=== PATIENT | male | born 1955 | race Caucasian/White ===

== ENCOUNTER 2020-11-11 15:50 | Outpatient (CLI) | payer OTHER, MEDICARE, SELFPAY ==
--- NOTE | ~2020-11-11 | XR_ITS ---
EXAMINATION: XR chest 2V DATE: 11/11/2020 16:13 INDICATION: Wheezing. Cough. Lung cancer. TECHNIQUE: Frontal and lateral views of the chest were obtained. COMPARISON: None. FINDINGS: There are airspace opacities in right lower lung zone and left mid and lower lung zones. No pleural effusion or pneumothorax. Cardiomegaly is noted. There is a right internal jugular port with tip at superior cavoatrial junction. IMPRESSION: 1. Airspace opacities in right lower lung zone and left mid and lower lung zones. The reported primar y malignancy may be in the left perihilar region. These findings may be some combination of treatment changes and atelectasis versus pneumonia. Correlation with outside imaging is recommended. 2. Cardiomegaly. Reviewed, dictated and finalized at location A. IMPRESSION: 1. Airspace opacities in right lower lung zone and left mid and lower lung zone s. The reported primary malignancy may be in the left perihilar region. These f indings may be some combination of treatment changes and atelectasis versus pne umonia. Correlation with outside imaging is recommended. 2. Cardiomegaly.
== END 2020-11-11 15:51 | disposition home or self-care (01) ==
LOC: ANHIMG 15:58
PROVIDERS: PCP Internal Medicine; Visit Provider Nurse Practitioner
DX: R05 Cough (principal); R06.2 Wheezing; I51.7 Cardiomegaly; R91.8 Other nonspecific abnormal finding of lung field
CPT/HCPCS: 71046

== ENCOUNTER 2020-11-24 13:11 | Emergency (ER) | payer OTHER, MEDICARE, SELFPAY ==
--- NOTE | 2020-11-24 13:43 | PC.NURSE ---
Pt decided not to be seen at facility today. Pt able to speak with physician before leaving.
== END 2020-11-24 13:43 | disposition left against medical advice (07) ==
PROVIDERS: Emergency Provider Emergency Medicine; PCP Internal Medicine
DX: Z53.21 Procedure and treatment not carried out due to patient leaving prior to being seen by health care provider (principal)
CPT/HCPCS: 99199

== ENCOUNTER 2020-12-22 11:12 | Emergency (ER) | payer OTHER, MEDICARE, SELFPAY ==
[2020-12-22] VITALS (27 sets, daily range): BP systolic 72–142; BP diastolic 54–97; PULSE 90–166; RESP 11–27; TEMP 36.6; O2SAT 91–99
--- NOTE | ~2020-12-22 | XR_ITS ---
XR chest 2V DATE: 12/22/2020 11:38 INDICATION: Malignant colon cancer. Tachycardia, dehydration, shortness of breath. TECHNIQUE: AP and lateral views COMPARISON: 11/11/2020 2 view chest FINDINGS: Almost 4 cm mass density overlies the left suprahilar area. Bilateral lower lung infiltrate and/atelectasis, right greater than left. Right pleural the effusion. Right Port-A-Cath catheter tip is noted near the superior cavoatrial junction. No pneumothorax is vipul dent. IMPRESSION: Little interval change since 11/11/2020 Reviewed, dictated and finalized at location B.
--- NOTE | 2020-12-22 11:24 | ECG_ITS ---
Measurements Intervals Milo Rate: 165 P: MS: 0 QRS: 0 QRSD: 78 T: 30 QT: 262 QTc: 434 Interpretive Statements SUPRAVENTRICULAR TACHYCARDIA BORDERLINE ST ABNORMALITY- ANTEROLATERAL LEADS BASELINE ARTIFACT- I, II, III, AVR, AVL ABNORMAL ECG Electronically Signed On 12-22-2020 11:40:23 CDT by Zack Morton D.O.
[2020-12-22] MEDS: SODIUM CHLORIDE 0.9% IV 2,300 ML/1,000 ML BAG 999 ML IV CONT ×3 (11:42→14:15)
[2020-12-22 11:48] LABS: Basophils Percent Auto 0.4 % (0.2-1.2); Eosinophils Absolute Auto 0.1 K/mm3 (0-0.3); Eosinophils Percent Auto 0.7 % (0-4.4); Hematocrit 38.8 % (42.0-52.0); Hemoglobin 12.8 g/dL (14.0-18.0); Immature Granulocyte Absolute 0.04 K/mm3 (0.00-0.031); Immature Granulocyte Percent A 0.4 % (0-0.5); Lymphocytes Percent Auto 13.3 % (18.3-44.2); Mean Corpuscular Hemoglobin 27.9 pg (26-34); Mean Corpuscular Volume 84.5 fl (80-100); Mean Platelet Volume 8.6 fl (7.4-10.4); Monocytes Absolute Auto 0.9 K/mm3 (0.1-0.6); Monocytes Percent Auto 8.5 % (2.6-8.5); Neutrophils Absolute Auto 8.1 K/mm3 (1.3-6.7); Neutrophils Percent Auto 76.7 % (45.5-73.1); Platelet Count Result 274 k/mm3 (150-375); Red Blood Count 4.59 M/mm3 (4.6-6.20); White Blood Count 10.5 K/mm3 (4.5-10.0)
[2020-12-22 11:54] LABS: Lactic Acid Reflex 2.2 mmol/L (0.7-2.1)
[2020-12-22 11:56] LABS: Alanine Aminotransferase 28 U/L (4-50); Albumin Level 3.3 g/dL (3.5-5.1); Alkaline Phosphatase 120 U/L (38-126); Anion Gap 12 mmol/L (8-16); Aspartate Amino Transferase 25 U/L (17-59); Bilirubin,Total 0.3 mg/dL (0.2-1.3); Blood Urea Nitrogen 13 mg/dL (9-20); CRP 2.2 mg/dL (<1.0); Calcium 8.9 mg/dL (8.4-10.2); Carbon Dioxide 22 mmol/L (22-30); Chloride 102 mmol/L (98-107); Estimated CRCL calculation 74 ml/min; Estimated Glomerular Filt Rate > 60; Glucose 140 mg/dL (65-110); Lipase 140 U/L (23-300); Potassium 4.1 mmol/L (3.4-5.0); Sodium 136 mmol/L (137-145)
[2020-12-22 11:57] LABS: Partial Thromboplastin Time 25.6 SECONDS (22.3-36.8); Prothrombin Time 13.3 Seconds (11.1-14.7)
[2020-12-22] MEDS: dilTIAZem HCl INJ 25 MG/5 ML VIAL 10 MG IV PUSH (12:11)
[2020-12-22 12:12] LABS: Troponin I < 0.012 ng/mL (0.000-0.034)
--- NOTE | 2020-12-22 12:26 | ED.GENADULT ---
HPI - General Adult General Chief complaint: Weakness Stated complaint: weakness History of Present Illness HPI narrative: Patient is a 65-year-old male who presents ER with weakness and dizziness. Patient is supposed be a direct admission to [facility] today. He has history of metastatic rectal cancer. He has been having dysphagia over the last couple weeks. Because of his inability to drink he was supposed to be evaluated. He was recently seen over the weekend. Patient was brushing his teeth and got dizzy. He also felt weak. EMS found him to be tachycardic and hypotensive and did not feel comfortable transporting him to [facility]. Patient denies fevers chills or sweats. Reports he has had recent diagnosis of pneumonia. Has been on multiple antibiotics for this including amoxicillin and ciprofloxacin. Related Data Home Medications Medication Instructions Recorded Confirmed aspirin 81 mg tablet,delayed 81 mg PO DAILY 10/05/19 11/07/19 release atorvastatin 80 mg tablet 80 mg PO DAILY 10/05/19 11/07/19 cholecalciferol (vitamin D3) 25 25 mcg PO DAILY 10/05/19 11/07/19 mcg (1,000 unit) capsule clopidogrel 75 mg tablet 75 mg PO DAILY 10/05/19 11/07/19 dutasteride 0.5 mg capsule 0.5 mg PO DAILY 10/05/19 11/07/19 fesoterodine 4 mg tablet,extended 4 mg PO DAILY 10/05/19 11/07/19 release 24 hr gabapentin 300 mg capsule 300 mg PO TID 10/05/19 11/07/19 oxycodone 20 mg tablet,crush 20 mg PO Q12H 10/05/19 11/07/19 resistant,extended release 12 hr prochlorperazine maleate 10 mg 10 mg PO Q8H PRN 10/05/19 11/07/19 tablet tamsulosin 0.4 mg capsule 0.4 mg PO DAILY 10/05/19 11/07/19 lisinopril 10 mg tablet 10 mg PO DAILY tablet 11/07/19 11/07/19 amlodipine 5 mg tablet 5 mg PO DAILY 09/24/20 naloxone 2 mg/actuation nasal spray mg INTRANASAL PRN 09/24/20 carvedilol 12.5 mg PO BID 12/22/20 12/22/20 ciprofloxacin HCl 750 mg PO Q12H 12/22/20 12/22/20 Allergies Allergy/AdvReac Type Severity Reaction Status Date / Time No Known Allergies Allergy Verified 12/22/20 11:10 Review of Systems Review of Systems: All systems reviewed & are unremarkable except as noted in HPI and below Constitutional: Constitutional: Denies chills, Reports fatigue, Denies fever(s) and Reports weakness ENT: Reports dysphagia, Reports dizziness, Denies nasal congestion and Denies sore throat Cardiovascular: Cardiovascular: Denies chest pain and Denies radiating jaw, neck or arm pain Respiratory: Respiratory: Reports cough and Reports dyspnea Gastrointestinal: Gastrointestinal: Denies abdominal pain, Reports nausea and Denies vomiting Musculoskeletal: Musculoskeletal: Denies back pain and Denies muscle cramps PMFSH Past Medical History Medical History (Updated 12/22/20 @ 17:18 by Mati Gao MD) 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 HEAD: Normocephalic, atraumatic. EYES: PERRL and EOMI. ENT: Mucous membranes moist. CHEST: Clear to auscultation with scant rhonchi on the right side. No respiratory distress. HEART: Tachycardic and regular.. Normal peripheral pulses. ABDOMEN: Soft, nontender, nondistended. EXTREMITIES: Normal range of motion. No edema. SKIN: Warm, dry, no rash. NEURO: Alert and oriented x3. Course Course Emergen
[2020-12-22] MEDS: ONDANSETRON INJ 4 MG/2 ML VIAL IV PUSH (12:30)
[2020-12-22 13:13] LABS: Add Urine Microscopic? YES; Appearance Urine Clear (Clear); Bacteria Urine Trace /hpf; Bilirubin Urine Negative (Negative); Blood Urine Negative (Negative); Color Urine Yellow (Yellow); Glucose Urine UA Negative (Negative); Ketones Urine Trace mg/dL (Negative); Leukocyte Esterase Ur Negative LEU/UL (Negative); Mucus Urine Rare /lpf; Nitrate Urine Negative (Negative); Protein Urine Negative (Negative); RBC Urine 0-2 /hpf (0-2); Specific Grav Ur 1.015 (1.001-1.035); Squamous Epithelial Cell Urine Rare /hpf (Few); Urobilinogen Urine Negative mg/dL (<2.0); WBC Urine 0-3 /hpf
[2020-12-22 14:42] LABS: Reflex Lactic Acid Yes or No Add Lactic
[2020-12-22 14:44] LABS: EDCOVIDSCREEN Negative (Negative)
--- NOTE | 2020-12-22 17:12 | PC.NURSE ---
made contact with latrice to transfer pt to [facility] [place] [id number] eta [id number]
--- NOTE | 2020-12-22 17:41 | PC.NURSE ---
latrice has arrived and crew is aware that pt is going to [facility] [place] [id number]
== END 2020-12-22 17:55 | disposition short-term general hospital (02) ==
PROVIDERS: Emergency Provider Emergency Medicine; PCP Internal Medicine
DX: R13.10 Dysphagia, unspecified (principal); I47.1 Supraventricular tachycardia; C20 Malignant neoplasm of rectum; C78.00 Secondary malignant neoplasm of unspecified lung; J18.9 Pneumonia, unspecified organism; I25.10 Atherosclerotic heart disease of native coronary artery without angina pectoris; E78.5 Hyperlipidemia, unspecified; Z87.891 Personal history of nicotine dependence; Z79.82 Long term (current) use of aspirin; R94.31 Abnormal electrocardiogram [ECG] [EKG]; Z20.822 Contact with and (suspected) exposure to COVID-19
CPT/HCPCS: 36415; 71046; 80053; 81001; 83605; 83690; 84484; 85025; 85610; 85730; 86140; 87040; 87426; 93005; 96361; 96374; 96375; 99285; C9803; J2405; J7030